=== PATIENT | female | born 1935 | race Caucasian/White ===

== ENCOUNTER 2024-01-04 10:37 | Inpatient (IN) | payer MEDICARE, SELFPAY ==
[2024-01-04] VITALS (11 sets, daily range): BP systolic 106–122; BP diastolic 59–85; PULSE 70–97; RESP 18–24; TEMP 35.9–37.1; O2SAT 93–100; BMI 23.8
--- NOTE | 2024-01-04 10:52 | RAD_ITS ---
HISTORY: Cough, shortness of breath. TECHNIQUE: XR Chest 1 View. COMPARISON: 12/19/2023. FINDINGS: CARDIOMEDIASTINAL BORDERS: Right chest wall port with catheter tip at the level the proximal superior vena cava. Mediastinal contour unchanged with calcification of the aorta. Cardiomegaly again noted. LUNGS: Mild linear opacities in the lung bases. PLEURA: Mild left pleural effusion. OSSEOUS STRUCTURES: Unremarkable. RAD/Chest 1 View (Portable) IMPRESSION: Cardiomegaly. Mild left pleural effusion. Mild bibasilar atelectasis or inflammation. Electronically Signed: Gabi Lorenzo MD at 12:01 EDT ,
--- NOTE | 2024-01-04 10:52 | EKG12_ITS ---
Test Reason : Blood Pressure : / mmHG Vent. Rate : 084 BPM Atrial Rate : 000 BPM P-R Int : 000 ms QRS Dur : 102 ms QT Int : 414 ms P-R-T Axes : 000 004 135 degrees QTc Int : 489 ms Atrial fibrillation Nonspecific T wave abnormality Abnormal ECG Confirmed by JULIAN VILLANUEVA, CHEMA ([id number]), online editor CLARA HALL ([id number]) on 01/06/2024 9:50:02 AM Referred By: Confirmed By:MAY JORDAN MD
--- NOTE | 2024-01-04 10:53 | EX.ED.DYSGE1 ---
HPI History of Present Illness Chief Complaint: Weakness Narrative Narrative: 88-year-old female presents with her daughter because of increasing shortness of breath and generalized weakness that she has had chronically. She has past medical history of myeloproliferative neoplasm and anemia. She has had multiple blood transfusions in the past. At the end of November, last month, her hemoglobin was 6.8. She had a Mediport inserted, and her labs were rechecked it is only gone up to above 7. Over the last few days, she has had increasing dyspnea on exertion, generalized weakness, generalized shortness of breath, and a cough. No fevers or chills. She was supposed to see her fabric worker leader/oncologist Dr. Brooks on Saturday for possible blood transfusion, but her daughter states that she contacted him because of the increasing shortness of breath and anemia. There is concern that she may have more of cardiac etiology for her increasing shortness of breath and weakness. However, she denies any chest pain, or other symptoms except for continued cough. [facility] Medical History Wears hearing aid Wears glasses History of Clostridium difficile infection Ambulates with cane Easy bruising Back pain History of diverticulitis Non-smoker Shortness of breath on exertion Chronic cough Leg cramps History of edema PONV (postoperative nausea and vomiting) History of echocardiogram Cardiology follow-up encounter History of irregular heartbeat Chest pain Diverticulosis History of stress test Dilation of esophagus Bladder prolapse History of vaginal delivery Anemia of chronic renal failure, stage 3a Chronic renal failure (CRF), stage 3a Thrombocytosis Anemia Myeloproliferative neoplasm Arthritis Gout Hypertension GERD (gastroesophageal reflux disease) Coronary artery disease Chronic kidney disease Wide-complex tachycardia (02/01/19) Nonischemic cardiomyopathy Essential (primary) hypertension Atherosclerosis of coronary artery of [place] heart without angina pectoris Hypothyroidism Vertigo Home Medications ?Medication ?Instructions ?Recorded ?Last Taken ?Type allopurinol 300 mg tablet 300 mg PO DAILY gout 02/01/19 01/04/24 History turmeric root extract 500 mg 500 mg PO DAILY thinks it is good 02/01/19 01/04/24 History capsule for her aspirin 81 mg chewable tablet 81 mg PO DAILY@0800 02/03/19 01/04/24 Rx levothyroxine 50 mcg capsule 50 mcg PO DAILY 02/20/19 01/04/24 History losartan 25 mg tablet (Cozaar) 25 mg PO DAILY #90 tabs 04/14/19 01/04/24 Rx carvedilol 6.25 mg tablet 6.25 mg PO BID #180 tabs 02/22/21 01/04/24 Rx cholecalciferol (vitamin D3) 50 50 mcg PO DAILY 12/12/22 01/04/24 History mcg (2,000 unit) capsule folic acid 1 mg tablet 1 mg PO DAILY 12/12/22 01/04/24 History cyanocobalamin (vitamin B-12) 5,000 mcg sublingual DAILY 12/14/23 01/04/24 History 5,000 mcg/mL sublingual drops Disability Placard #1 ea 12/31/23 Unknown Rx ascorbic acid (vitamin C) 500 mg 500 mg PO TID 01/04/24 01/04/24 History tablet coenzyme Q10 50 mg capsule 50 mg PO TID 01/04/24 Unknown History Allergy/AdvReac Type Severity Reaction Status Date / Time atorvastatin Allergy NEEDS Verified 12/19/23 07:51 FOLLOW-UP latex Allergy Rash Verified 12/19/23 07:51 metronidazole (From Flagyl) Allergy Nausea Verified 12/19/23 07:51 metronidazole, micronized Allergy NEEDS Verified 12/19/23 07:51 FOLLOW-UP mold Allergy Shortness Verified 12/19/23 07:51 of breath nitrofurantoin (From Allergy PT UNSURE Verified 12/19/23 07:51 Macrobid) OF REACTION lisinopril AdvReac cough Verified 12/19/23 07:51 Family History Father Hypertension Diabetes Heart disease Mother Hypertension Dementia Rheumatic fever Brother Blood disorder hemochromatosis Unknown Leukemia grandson Surgical History History of cataract extraction History of cardiac catheterization History of cataract removal with insertion of prosthetic lens History of colonoscopy History of bladder surgery History of tonsillectomy and adenoidectomy History of hysterectomy Hx of cholecystectomy History of left heart catheterization (02/03/19) Social History Smoking Status: Never smoker alcohol intake: current alcohol intake frequency: holidays/special occasions only Alcohol type: wine substance use type: does not use diet: gluten free ROS ROS ED ROS Narrative Constitutional: No fever, no chills. HEENT: No sore throat. No neck pain. No loss of vision. No rhinorrhea. Cardiovascular: No chest pain. No palpitations. No pedal edema. Respiratory: Positive dry, nonproductive cough, increasing shortness of breath. Positive dyspnea on exertion. Abdominal: No abdominal pain. No nausea. No vomiting. Genitourinary: No dysuria. No hematuria. Musculoskeletal: No myalgias. No arthralgias. Neurologic: No headaches. No dizziness. No lightheadedness. Skin: No rash. No change in color. Psychiatric: No depression. No anxiety. EXAM Physical Exam Narrative Exam Narrative: Afebrile. Vital signs noted. HEENT: Normocephalic. Atraumatic. PERRL, EOMI. Neck soft and supple. No point tenderness or step off. Cardiovascular: Regular rate and rhythm. No murmurs, rubs, or gallops appreciated. Respiratory: Mild tachypnea. Lungs clear to auscultation bilaterally. Dry cough on examination. Gastrointestinal: Abdomen soft, nontender, with normoactive bowel sounds. No rebound or guarding. Neurological: Awake. Alert. Nonfocal, nonlateralizing. Skin: No rash. Normal color. Positive bilateral palmar pallor with subconjunctival pallor. No central cyanosis. Musculoskeletal: No pedal edema. Full range of motion extremities. Const Vital Signs: 01/04/24 10:38 01/04/24 11:30 Temperature 96.7 F L Temperature Source Temporal Pulse Rate 85 Respiratory Rate 22 H Respiratory Effort Normal Respiratory Pattern Normal Blood Pressure 111/62 Blood Pressure Mean 78 Pulse Ox 100 Oxygen Delivery Method Room Air MDM MDM MDM Narrative Medical decision making narrative: In the differential diagnosis is anemia requiring transfusions causing her shortness of breath versus pneumonia versus pneumothorax versus ACS. History and physical does not support pneumothorax as she has bilateral breath sounds as well and her pulse ox is 100% on room air. I have low suspicion for pneumonia as well as she does not have fever or productive cough. Comprehensive workup was pursued. She will be typed and screened for the potential for transfusion of blood. She may require 1 unit of transfusion for symptomatic treatment if her hemoglobin is above 7. EKG was obtained and interpreted by myself independently as normal sinus rhythm at [address] changes. Positive PACs, no STEMI. I reviewed her laboratory work and she has normal white count of 9.5 but hemoglobin critically low at 4.9. She was typed and crossmatched for 4 units and started on a 2 unit transfusion. Platelet count normal at 327. BMP remarkable for BUN of 31 and creatinine 0.83. High-sensitivity troponin is 15, so I doubt non-STEMI. However, her BNP is elevated above the thousand. She was administered Lasix 40 mg intravenously prior to any blood transfusion. Chest x-ray 1 view interpreted by myself independently shows no evidence of pneumothorax or consolidation. I reviewed the radiology report which confirms my independent interpretation, but does comment on pleural effusion on the left and mild atelectasis bibasilar versus inflammation. I had paged Dr. Brooks to inform him of the low hemoglobin.. I also discussed the patient with Dr. Anaya the hospitalist for admission to the PCU. Patient is in stable condition. History & Record Review Discussion w/independent historian: Patient and Family Lab Data Attestation: I reviewed the patient's lab results. Labs: Laboratory Results - last 24 hr 01/04/24 11:20 WBC 9.5 RBC 1.84 L Hgb 4.9 L* Hct 15.9 L MCV 86.4 MCH 26.6 L MCHC 30.8 L RDW Std Deviation 68.0 H RDW Coeff of Rossi 23.1 H Plt Count 327 MPV 10.8 Immature Gran % (Auto) 1.900 H Neut % (Auto) 75.8 H Lymph % (Auto) 11.0 L [place] % (Auto) 5.7 Eos % (Auto) 4.0 Baso % (Auto) 1.6 H Absolute Neuts (auto) 7.2 Absolute Lymphs (auto) 1.05 Nucleated RBC % 0.4 Differential Comment SCANNED Diff Path Review May foll Reactive Lymphocytes 1+ Polychromasia 1+ Hypochromasia 2+ Anisocytosis 3+ Microcytosis 2+ Macrocytosis 1+ Stomatocytes 1+ Schistocytes 1+ Sodium 141 Potassium 4.0 Chloride 111 H Carbon Dioxide 21.0 Anion Gap 9 BUN 31 H Creatinine 0.83 Est GFR (MDRD) Af Amer 83 Est GFR (MDRD) Non-Af 69 BUN/Creatinine Ratio 37.3 H Glucose 131 H Calcium 8.6 Troponin I High Sens 15 B-Natriuretic Peptide 1005.6 H Blood Type O POSITIVE Antibody Screen NEGATIVE Crossmatch See Detail Radiography Chest X-Ray - ED: 1 View, Read by ED Physician and Read by Radiologist Diagnostic Testing: Clinical Impression(s) from Imaging Studies Chest X-Ray 01/04/24 10:52 IMPRESSION: Cardiomegaly. Mild left pleural effusion. Mild bibasilar atelectasis or inflammation. Electronically Signed: Gabi Lorenzo MD at 12:01 EDT , Discharge Plan Dx/Rx/DC Orders Clinical Impression: Anemia requiring transfusions, Myeloproliferative neoplasm, SOB (shortness of breath) Disposition Disposition: Acute Care Hospital [facility] Discharge Date/Time: 01/04/24 12:55
[2024-01-04 11:25] LABS: Absolute Lymphocyte Count 1.05 X10^3/uL (0.83-4.51); Absolute Neutrophil Count 7.2 X10^3/uL (2.0-7.7); Basophil# 0.15 X10^3/uL; Basophil% 1.6 % (0-1); Eosinophil# 0.38 X10^3/uL; Hematocrit 15.9 % (37-47); Lymphocyte # 1.05 X10^3/ul (0.83-4.51); Mean Corp Hgb Conc 30.8 g/dL (32-36); Mean Corpuscular Hgb 26.6 pg (27.0-32.0); Mean Corpuscular Volume 86.4 fL (81-99); Mean Platelet Vol. 10.8 fl (6.2-12.0); Monocyte# 0.54 X10^3/uL; Monocyte% 5.7 % (0-10); NRBC Flagged by Analyzer 0.4 % (0-5); Neutrophil # 7.23 X10^3/uL (2.7-7.7); Neutrophil % 75.8 % (47-70); POSITIVE COUNT YES; POSITIVE MORPHOLOGY YES; Platelet Count 327 K/mm3 (150-450); RBC Distribution Width CV 23.1 % (11.6-14.6); Red Blood Count 1.84 M/mm3 (4.2-5.4); White Blood Count 9.5 K/mm3 (4.4-11.0)
[2024-01-04 11:33] LABS: Differential Indicated SCAN CRITERIA MET; Hemoglobin 4.9 g/dL (12.0-15.0)
[2024-01-04 11:41] LABS: Anion Gap 9 (5-15); BUN 31 mg/dL (7-18); BUN/Creat Ratio 37.3 RATIO (10-20); Calcium,Total 8.6 mg/dL (8.5-10.1); Chloride 111 mmol/L (98-107); Creatinine, Serum 0.83 mg/dL (0.55-1.02); EST Glomerular Filtration Rate 69 mL/min (>60); Est Glom Filt Rate - Afr Amer 83 mL/min (>60); Glucose 131 mg/dL (74-106); Sodium Level 141 mmol/L (136-145); Troponin-I HS 15 pg/mL (3.0-54.0)
--- NOTE | 2024-01-04 11:51 | HP.PCM.HOS_ITS ---
HPI - General General Date of Admission: 01/04/24 Date of Service: 01/04/24 Chief Complaint: weakness HPI Narrative CHRIS GRIMES, is a 88 F with a PMH as outlined who presents via the ED with a complaint of worsening weakness and lethargy as well as shortness of breath. She has a history of myeloproliferative disorder with recurrent acute on chronic anemia requiring blood transfusions in the past. She had a Mediport inserted a few weeks ago. She has been getting weaker and more short of breath. She denied any fever, chills, chest pain or any other symptoms. She was supposed to see her oncologist on Saturday for transfusion. However, her symptoms had worsened so she came into the ED as daughters were concerned about possible pneumonia. Vitals in the ED with blood pressure 111/62, pulse rate of 85, respiratory rate of 22 and temperature of 96.7 Fahrenheit. She was saturating at 100% on room air. CBC showed hemoglobin of 4.9 with WBC of 9.5 and platelets of 327. Chemistry is unremarkable. Chest x-ray showed no evidence of any acute cardiopulmonary pathology. She has been admitted to be managed for acute on chronic anemia due to myeloproliferative disorder. [facility] Medical History (Updated 01/04/24 @ 13:26 by Erna Douglass) PVD (peripheral vascular disease) Wears hearing aid Wears glasses History of Clostridium difficile infection Ambulates with cane Easy bruising Back pain History of diverticulitis Non-smoker Shortness of breath on exertion Chronic cough Leg cramps History of edema PONV (postoperative nausea and vomiting) History of echocardiogram Cardiology follow-up encounter History of irregular heartbeat Chest pain Diverticulosis History of stress test Dilation of esophagus Bladder prolapse History of vaginal delivery Anemia of chronic renal failure, stage 3a Chronic renal failure (CRF), stage 3a Thrombocytosis Anemia Myeloproliferative neoplasm Arthritis Gout Hypertension GERD (gastroesophageal reflux disease) Coronary artery disease Chronic kidney disease Wide-complex tachycardia (02/01/19) Nonischemic cardiomyopathy Essential (primary) hypertension Atherosclerosis of coronary artery of [place] heart without angina pectoris Hypothyroidism Vertigo Home Medications ?Medication ?Instructions ?Recorded ?Last Taken ?Type allopurinol 300 mg tablet 300 mg PO DAILY gout 02/01/19 01/04/24 History turmeric root extract 500 mg 500 mg PO DAILY thinks it is good 02/01/19 01/04/24 History capsule for her aspirin 81 mg chewable tablet 81 mg PO DAILY@0800 02/03/19 01/04/24 Rx levothyroxine 50 mcg capsule 50 mcg PO DAILY 02/20/19 01/04/24 History losartan 25 mg tablet (Cozaar) 25 mg PO DAILY #90 tabs 04/14/19 01/04/24 Rx carvedilol 6.25 mg tablet 6.25 mg PO BID #180 tabs 02/22/21 01/04/24 Rx cholecalciferol (vitamin D3) 50 50 mcg PO DAILY 12/12/22 01/04/24 History mcg (2,000 unit) capsule folic acid 1 mg tablet 1 mg PO DAILY 12/12/22 01/04/24 History cyanocobalamin (vitamin B-12) 5,000 mcg sublingual DAILY 12/14/23 01/04/24 History 5,000 mcg/mL sublingual drops Disability Placard #1 ea 12/31/23 Unknown Rx ascorbic acid (vitamin C) 500 mg 500 mg PO TID 01/04/24 01/04/24 History tablet coenzyme Q10 50 mg capsule 50 mg PO TID 01/04/24 Unknown History Allergy/AdvReac Type Severity Reaction Status Date / Time atorvastatin Allergy NEEDS Verified 12/19/23 07:51 FOLLOW-UP latex Allergy Rash Verified 12/19/23 07:51 metronidazole (From Flagyl) Allergy Nausea Verified 12/19/23 07:51 metronidazole, micronized Allergy NEEDS Verified 12/19/23 07:51 FOLLOW-UP mold Allergy Shortness Verified 12/19/23 07:51 of breath nitrofurantoin (From Allergy PT UNSURE Verified 12/19/23 07:51 Macrobid) OF REACTION lisinopril AdvReac cough Verified 12/19/23 07:51 Family History Father Hypertension Diabetes Heart disease Mother Hypertension Dementia Rheumatic fever Brother Blood disorder hemochromatosis Unknown Leukemia grandson Surgical History History of cataract extraction History of cardiac catheterization History of cataract removal with insertion of prosthetic lens History of colonoscopy History of bladder surgery History of tonsillectomy and adenoidectomy History of hysterectomy Hx of cholecystectomy History of left heart catheterization (02/03/19) Social History Smoking Status: Never smoker alcohol intake: current alcohol intake frequency: holidays/special occasions only Alcohol type: wine substance use type: does not use diet: gluten free ROS Review of Systems ROS Unobtainable: Denies due to encephalopathy Constitutional Constitutional: Reports fatigue, malaise and weakness; Denies anorexia, chills or fever(s) Eyes Eyes: Denies change in vision ENT HEENT: Denies dysphagia, headache(s) or hearing loss Cardiovascular Cardiovascular: Reports dyspnea on exertion and lightheadedness; Denies edema, orthopnea, palpitations, paroxysmal nocturnal dyspnea, rapid heart rate or syncope Respiratory/Chest Respiratory/Chest: Denies cough or dyspnea Genitourinary Genitourinary: Denies dysuria or hematuria Musculoskeletal Musculoskeletal: Denies back pain Neurologic Neurologic: Denies confusion, dizziness, focal weakness or headache(s) Hematologic/Lymphatic Hematologic/Lymphatic: Reports anemia Vital Signs Vital Signs Vital Signs: 01/04/24 10:38 01/04/24 11:30 Temperature 96.7 F L Temperature Source Temporal Pulse Rate 85 Respiratory Rate 22 H Respiratory Effort Normal Respiratory Pattern Normal Blood Pressure 111/62 Blood Pressure Mean 78 Pulse Ox 100 Oxygen Delivery Method Room Air Physical Exam Const alert, oriented x3 and no apparent distress Constitutional Narrative: frail General Appearance: cooperative HEENT normocephalic, head/scalp atraumatic, hearing grossly normal bilaterally and moist oral mucous membranes Mouth: oral and palatal mucosa normal Eyes PERRL, EOMs intact bilaterally and conjunctivae normal Neck no lymphadenopathy and supple Resp normal respiratory effort, no retractions, no use of accessory muscles and clear to auscultation bilaterally Cardio regular rate, regular rhythm, S1 normal heart sound, S2 normal heart sound and no murmurs GI normal to inspection, nondistended, normoactive bowel sounds, soft to palpation and non-tender Extremity normal to inspection, full ROM and no clubbing, cyanosis or edema Neuro oriented x3, CN's II-XII intact bilaterally, moves all extremities and no focal motor deficits Motor Exam: strength 5/5 throughout Psych affect normal Results Lab / Micro Data 01/04/24 11:20 01/04/24 11:20 Labs: Laboratory Results - last 24 hr 01/04/24 11:20: WBC 9.5, RBC 1.84 L, Hgb 4.9 L*, Hct 15.9 L, MCV 86.4, MCH 26.6 L, MCHC 30.8 L, RDW Std Deviation 68.0 H, RDW Coeff of Rossi 23.1 H, Plt Count 327, MPV 10.8, Immature Gran % (Auto) 1.900 H, Neut % (Auto) 75.8 H, Lymph % (Auto) 11.0 L, [place] % (Auto) 5.7, Eos % (Auto) 4.0, Baso % (Auto) 1.6 H, Absolute Neuts (auto) 7.2, Absolute Lymphs (auto) 1.05, Nucleated RBC % 0.4, Sodium 141, Potassium 4.0, Chloride 111 H, Carbon Dioxide 21.0, Anion Gap 9, BUN 31 H, Creatinine 0.83, Est GFR (MDRD) Af Amer 83, Est GFR (MDRD) Non-Af 69, B UN/Creatinine Ratio 37.3 H, Glucose 131 H, Calcium 8.6, Troponin I High Sens 15 Assessment & Plan Assessment/Plan (1) SOB (shortness of breath): (2) Anemia requiring transfusions: PLAN: Plan #Acute on chronic anemia due to myeloproliferative disorder'= * Admit to PCU. * Her hemoglobin is 4.9. She does have chronic anemia requiring recurrent transfusions due to the myeloproliferative disorder. * Transfused with 2 units of packed red blood cells. * Admitted for hemoglobin more than 7. * His oncologist informed by ED. However I do not think there is any need to emergently involve hematology now. * #Acute on chronic HFpEF * BNP is 1005.6. * Daughter showed me echo from [place] done in August 2023 which showed that patient had EF of 35 to 40% and some left global hypokinesis. * Daughter says patient was on HCTZ, but this was discontinued due to her impaired kidney function. * she has never been on lasix * 2D echo ordered * IV lasix 40mg bid. * Her severe anemia may likely contributing to her herat failure * breathing treatment with bronchodilators. * Titrate oxygen to maintain sats >90% * #Hypertension: On carvedilol. Also on losartan. IV hydralazine as needed #Hypothyroidism: Synthroid #Nonischemic cardiomyopathy: Not on aspirin on account of recurrent anemia. Due to prophylaxis: SCDs. CODE STATUS:full code. * Patient and daughter counseled extensively about different types of CODE STATUS including full code, DNR CCA and DNR CCA. Patient elects to be full code. * Total [id number] time 17 minutes. Charges/Coding Visit Charges Inpatient E&M: 12142 Init Hosp L3 Procedures Hospitalists Procedures: 11321 Advncd Care Plan 30 Min
[2024-01-04 11:54] LABS: BNP,B-Type NATRIURETIC PEPTIDE 1005.6 pg/mL (0-100)
[2024-01-04 12:10] LABS: Differential Comment SCANNED
[2024-01-04 12:11] LABS: Anisocytosis 3+; Hypochromasia 2+; Macrocytosis 1+; Microcytosis 2+; Polychromasia 1+; Reactive Lymphocyte 1+; Schistocytes 1+; Stomatocyte 1+
[2024-01-04] MEDS: Furosemide 40 MG/4 ML Vial IV ×2 (12:11→17:53)
--- NOTE | 2024-01-04 13:01 | ECHOD_ITS ---
Reason For Study: CONGESTIVE HEART FAILURE Procedure This was a 2D Doppler, Color Flow transthoracic echocardiogram. Exam performed portable in patient room. Left Ventricle Mildly dilated left ventricle. The left ventricular ejection fraction is 35 %. There is moderate to severe global hypokinesis of the left ventricle. Right Ventricle Normal RV size. Normal systolic function. Atria Normal left atrium. Normal right atrium. Mitral Valve Normal mitral valve. Tricuspid Valve Normal tricuspid valve. Mild (1+) tricuspid valve insufficiency. Pulmonary artery systolic pressure is 28 mmHg. Aortic Valve Trisinus/trileaflet aortic valve. Mild (1+) aortic valve insufficiency. Pulmonic Valve Normal pulmonic valve. Great Vessels Normal aortic root. The pulmonary artery is normal size. Inferior vena cava collapse with respiration. Pericardium/Pleural Small pericardial effusion. There are no echocardiographic indications of cardiac tamponade. MMode/2D Measurements & Calculations LVIDd: 5.9 cm IVSd: 1.1 cm LVOT diam: 1.9 cm LVIDs: 4.4 cm LVPWd: 0.99 cm LVOT area: 2.8 cm2 RVDd: 4.2 cm FS: 25.6 % Ao root diam: 3.2 cm LAV(MOD-bp): 63.9 ml LVAd ap4: 28.2 cm2 LAV(MOD-bp) Indexed: 39.7 ml/m2 LVLd ap4: 7.0 cm LAV(MOD-sp2): 77.0 ml EDV(MOD-sp4): 95.7 ml LAV(MOD-sp4): 52.2 ml EDV(sp4-el): 96.8 ml LVAs ap4: 22.3 cm2 LVLs ap4: 6.3 cm ESV(MOD-sp4): 67.4 ml ESV(sp4-el): 66.8 ml EF(MOD-sp4): 29.6 % EF(sp4-el): 31.0 % LVAd ap2: 29.3 cm2 SV(MOD-sp4): 28.3 ml SV(MOD-sp2): 38.1 ml LVLd ap2: 7.2 cm EDV(MOD-sp2): 102.0 ml EDV(sp2-el): 100.9 ml LVAs ap2: 21.9 cm2 LVLs ap2: 6.2 cm ESV(MOD-sp2): 64.0 ml ESV(sp2-el): 66.3 ml EF(MOD-sp2): 37.3 % SV(sp4-el): 30.0 ml LA dimension(2D): 3.8 cm LA A4 area: 19.8 cm2 RA A4 area: 16.6 cm2 TAPSE: 2.4 cm Time Measurements MV dec time: 0.24 sec Doppler Measurements & Calculations MV E max brad: 60.8 cm/sec Lat Peak E' Brad: 6.7 cm/sec Med Peak E' Brad: 6.0 cm/sec E/E' lat: 9.1 E/E' med: 10.1 Ao V2 max: 168.2 cm/sec LV V1 max: 103.8 cm/sec SV(LVOT): 55.0 ml Ao max P.4 mmHg LV V1 max P.4 mmHg Ao V2 mean: 122.7 cm/sec LV V1 mean P.2 mmHg Ao mean P.6 mmHg LV V1 mean: 67.0 cm/sec Ao V2 VTI: 28.9 cm LV V1 VTI: 19.3 cm AV (velocity ratio): 0.67 JOSE ENRIQUE(I,D): 1.9 cm2 JOSE ENRIQUE(V,D): 1.8 cm2 TV V2 max: 247.9 cm/sec PA V2 max: 98.6 cm/sec TV max P.6 mmHg PA max PG (full): 2.1 mmHg ECHO/Echo Complete Interpretation Summary The left ventricular ejection fraction is 35 %. Mildly dilated left ventricle. There is moderate to severe global hypokinesis of the left ventricle. Pulmonary artery systolic pressure is 28 mmHg. Small pericardial effusion. Ordering Physician: Radha Anaya Referring Physician: Austin Martínez MD Performed By: Elodia Jackson RDCS
[2024-01-04] MEDS: Ensure Plus High Protein 120 ML LIQUID PO ×2 (14:17→16:46)
[2024-01-04] MEDS: 0.9% Saline Lock 10 ML Syringe IV ×2 (16:46→17:54)
[2024-01-04] MEDS: Ascorbic Acid 500 MG Tablet PO (16:52)
--- NOTE | 2024-01-04 16:53 | EKG12_ITS ---
Test Reason : Blood Pressure : / mmHG Vent. Rate : 087 BPM Atrial Rate : 087 BPM P-R Int : 160 ms QRS Dur : 104 ms QT Int : 362 ms P-R-T Axes : 075 002 140 degrees QTc Int : 435 ms Sinus rhythm with occasional Premature ventricular complexes and Premature atrial complexes Nonspecific T wave abnormality Abnormal ECG When compared with ECG of 04-JAN-2024 10:58, MANUAL COMPARISON REQUIRED, DATA IS UNCONFIRMED Confirmed by JOHAN VILLANUEVA, LUCI ([id number]), news assignment editor CLARA HALL ([id number]) on 01/07/2024 9:27:16 AM Referred By: RICO Confirmed By:LUCI PRADO MD
[2024-01-04 18:46] LABS: Troponin-I HS 17 pg/mL (3.0-54.0)
[2024-01-04] MEDS: Carvedilol 6.25 MG Tablet PO (20:10)
[2024-01-04 20:40] LABS: Hematocrit 20.9 % (37-47); Hemoglobin 6.7 g/dL (12.0-15.0); POSITIVE MORPHOLOGY YES
[2024-01-04 20:54] LABS: Troponin-I HS 15 pg/mL (3.0-54.0)
[2024-01-05] VITALS (10 sets, daily range): BP systolic 105–126; BP diastolic 66–87; PULSE 64–94; RESP 17–18; TEMP 36.4–36.8; O2SAT 95–99
[2024-01-05 00:43] LABS: Troponin-I HS 18 pg/mL (3.0-54.0)
[2024-01-05] MEDS: Levothyroxine 50 MCG Tablet PO (03:04)
[2024-01-05] MEDS: Acetaminophen 325 MG Tablet 650 MG PO ×3 (04:35→23:31)
[2024-01-05 06:25] LABS: Absolute Lymphocyte Count 1.25 X10^3/uL (0.83-4.51); Absolute Neutrophil Count 6.9 X10^3/uL (2.0-7.7); Basophil# 0.31 X10^3/uL; Basophil% 3.3 % (0-1); Eosinophil# 0.33 X10^3/uL; Eosinophils% 3.5 % (0-5); Hematocrit 19.8 % (37-47); Hemoglobin 6.4 g/dL (12.0-15.0); Lymphocyte # 1.25 X10^3/ul (0.83-4.51); Lymphocyte % 13.2 % (19-41); Mean Corp Hgb Conc 32.3 g/dL (32-36); Mean Corpuscular Hgb 27.8 pg (27.0-32.0); Mean Corpuscular Volume 86.1 fL (81-99); Mean Platelet Vol. 11.6 fl (6.2-12.0); Monocyte# 0.53 X10^3/uL; Monocyte% 5.6 % (0-10); NRBC Flagged by Analyzer 0.2 % (0-5); Neutrophil # 6.85 X10^3/uL (2.7-7.7); POSITIVE MORPHOLOGY YES; Platelet Count 370 K/mm3 (150-450); RBC Distribution Width CV 20.1 % (11.6-14.6); RBC Distribution Width SD 58.8 fl (35.1-43.9); White Blood Count 9.5 K/mm3 (4.4-11.0)
[2024-01-05 06:36] LABS: Differential Indicated SCAN CRITERIA MET
[2024-01-05 06:37] LABS: Anion Gap 8 (5-15); BUN 35 mg/dL (7-18); BUN/Creat Ratio 33.3 RATIO (10-20); Calcium,Total 8.5 mg/dL (8.5-10.1); Chloride 105 mmol/L (98-107); Creatinine, Serum 1.05 mg/dL (0.55-1.02); EST Glomerular Filtration Rate 52 mL/min (>60); Est Glom Filt Rate - Afr Amer 63 mL/min (>60); Estimated Creatinine Clearance 28.73 ml/min; Glucose 184 mg/dL (74-106); Potassium 3.3 mmol/L (3.5-5.1); Sodium Level 139 mmol/L (136-145)
[2024-01-05] MEDS: Furosemide 40 MG/4 ML Vial IV ×2 (09:26→17:51)
[2024-01-05 09:27] LABS: Acanthocytes 1+; Anisocytosis 2+; Differential Comment SCANNED; Hypochromasia 1+; Macrocytosis 1+; Microcytosis 1+
[2024-01-05] MEDS: Losartan Potassium 25 MG Tablet PO (09:27)
[2024-01-05] MEDS: Folic Acid 1 MG Tablet PO (09:27)
[2024-01-05] MEDS: Carvedilol 6.25 MG Tablet PO ×2 (09:27→20:50)
[2024-01-05] MEDS: Cholecalciferol (VIT D3) 25 MCG TABLET (1,000 UNITS) 50 MCG PO (09:27)
[2024-01-05] MEDS: 0.9% Saline Lock 10 ML Syringe IV ×3 (09:28→17:51)
[2024-01-05] MEDS: Ensure Plus High Protein 120 ML LIQUID PO (09:28)
[2024-01-05] MEDS: Ascorbic Acid 500 MG Tablet PO ×3 (09:28→17:50)
[2024-01-05] MEDS: Potassium Chloride Oral Tablet 20 MEQ 40 MEQ PO (09:28)
[2024-01-05] MEDS: Allopurinol 300 MG Tablet PO (09:28)
--- NOTE | 2024-01-05 09:35 | PCM.PROGNOTE ---
Subjective Subjective Patient seen and examined. Her daughter was by her bedside. She says she felt much better today. She had no other complaints and review of systems otherwise negative. Of note she did complain of some chest pain overnight but that has resolved. Objective Data Objective Data Vital Signs: Vital Signs Temp Pulse Resp BP Pulse Ox O2 Del Method 98.2 F 66 18 113/67 95 Room Air 01/05/24 09:25 01/05/24 09:25 01/05/24 09:25 01/05/24 09:25 01/05/24 09:25 01/05/24 09:25 Oxygen Delivery Method Room Air Weight: 130 lb 1.6 oz Body Mass Index (BMI) 23.8 Intake & Output: Intake and Output for Last 24 Hours 01/03/24 01/04/24 01/05/24 23:59 23:59 23:59 Intake Total 242 / 242 0 / 0 Output Total 625 / 1625 1550 / 1550 Balance -383 / -1383 -1550 / -1550 Lab / Micro Data 01/05/24 06:00 01/05/24 06:00 Labs: Laboratory Results - last 24 hr 01/04/24 11:20: WBC 9.5, RBC 1.84 L, Hgb 4.9 L*, Hct 15.9 L, MCV 86.4, MCH 26.6 L, MCHC 30.8 L, RDW Std Deviation 68.0 H, RDW Coeff of Rossi 23.1 H, Plt Count 327, MPV 10.8, Immature Gran % (Auto) 1.900 H, Neut % (Auto) 75.8 H, Lymph % (Auto) 11.0 L, Mitchell % (Auto) 5.7, Eos % (Auto) 4.0, Baso % (Auto) 1.6 H, Absolute Neuts (auto) 7.2, Absolute Lymphs (auto) 1.05, Nucleated RBC % 0.4, Differential Comment SCANNED, Diff Path Review May foll, Reactive Lymphocytes 1+, Polychromasia 1+, Hypochromasia 2+, Anisocytosis 3+, Microcytosis 2+, Macrocytosis 1+, Stomatocytes 1+, Schistocytes 1+, Sodium 141, Potassium 4.0, Chloride 111 H, Carbon Dioxide 21.0, Anion Gap 9, BUN 31 H, Creatinine 0.83, Est GFR (MDRD) Af Amer 83, Est GFR (MDRD) Non-Af 69, BUN/Creatinine Ratio 37.3 H, Glucose 131 H, Calcium 8.6, Troponin I High Sens 15, B-Natriuretic Peptide 1005.6 H, Blood Type O POSITIVE, Antibody Screen NEGATIVE, Crossmatch See Detail 01/04/24 18:17: Troponin I High Sens 17 01/04/24 20:28: Hgb 6.7 L, Hct 20.9 L, Troponin I High Sens 15 01/05/24 00:11: Troponin I High Sens 18 01/05/24 06:00: WBC 9.5, RBC 2.30 L, Hgb 6.4 L, Hct 19.8 L, MCV 86.1, MCH 27.8, MCHC 32.3, RDW Std Deviation 58.8 H, RDW Coeff of Rossi 20.1 H, Plt Count 370, MPV 11.6, Immature Gran % (Auto) 2.400 H, Neut % (Auto) 72.0 H, Lymph % (Auto) 13.2 L, Mitchell % (Auto) 5.6, Eos % (Auto) 3.5, Baso % (Auto) 3.3 H, Absolute Neuts (auto) 6.9, Absolute Lymphs (auto) 1.25, Nucleated RBC % 0.2, Differential Comment SCANNED, Hypochromasia 1+, Anisocytosis 2+, Microcytosis 1+, Macrocytosis 1+, Acanthocytes (Spur) 1+, Sodium 139, Potassium 3.3 L, Chloride 105, Carbon Dioxide 26.0, Anion Gap 8, BUN 35 H, Creatinine 1.05 H, Estim Creat Clear Calc 28.73, Est GFR (MDRD) Af Amer 63, Est GFR (MDRD) Non-Af 52 L, BUN/Creatinine Ratio 33.3 H, Glucose 184 H, Calcium 8.5 Radiography Diagnostic Testing: Radiology Impression Chest X-Ray 01/04/24 10:52 IMPRESSION: Cardiomegaly. Mild left pleural effusion. Mild bibasilar atelectasis or inflammation. Electronically Signed: Gabi Lorenzo MD at 12:01 EDT Reading Location ID and State: [facility] / [place] Tel , Service support , Physical Exam Const alert, oriented x3 and no apparent distress Constitutional Narrative: frail General Appearance: cooperative HEENT normocephalic, head/scalp atraumatic, hearing grossly normal bilaterally and moist oral mucous membranes Eyes PERRL, EOMs intact bilaterally and conjunctivae normal Neck no lymphadenopathy and supple Resp normal respiratory effort, normal air movement, no retractions, no use of accessory muscles and clear to auscultation bilaterally Cardio regular rate, regular rhythm, S1 normal heart sound, S2 normal heart sound and no murmurs GI normal to inspection, nondistended, normoactive bowel sounds, soft to palpation and non-tender Extremity normal to inspection, full ROM, normal capillary refill and no clubbing, cyanosis or edema Neuro oriented x3, CN's II-XII intact bilaterally, moves all extremities and no focal motor deficits Motor Exam: strength 5/5 throughout Psych thought process normal, cooperative and affect normal Appearance: appropriate Assessment & Plan Assessment/Plan (1) SOB (shortness of breath): (2) Anemia requiring transfusions: PLAN: Plan #Acute on chronic anemia due to myeloproliferative disorder'= s/p transfusion of 2 units of PRBCs. Hb was 6.4 on admission, and is now 6.7 today will transfuse 2 more units of PRBCs. Transfused with 2 units of packed red blood cells. #Acute on chronic HFpEF BNP is 1005.6. Daughter showed me echo from [place] done in August 2023 which showed that patient had EF of 35 to 40% and some left global hypokinesis. Daughter says patient was on HCTZ, but this was discontinued due to her impaired kidney function. Kidney function is normal now she has never been on lasix 2D echo ordered IV lasix 40mg bid. Her severe anemia may likely contributing to her heart failure breathing treatment with bronchodilators. Titrate oxygen to maintain sats >90% #Hypertension: On carvedilol. Also on losartan. IV hydralazine as needed #Hypokalemia: Potassium is 3.3 today. Replace and trend. #Hypothyroidism: Synthroid #Nonischemic cardiomyopathy: Not on aspirin on account of recurrent anemia. Due to prophylaxis: SCDs. CODE STATUS:full code. Charges/Coding Visit Charges Inpatient E&M: 01966 Subs Hosp L2
[2024-01-05 15:00] LABS: Hematocrit 29.3 % (37-47); Hemoglobin 9.8 g/dL (12.0-15.0)
[2024-01-05] MEDS: guaiFENesin 10 ML UDC (200MG/10ML) PO (21:17)
[2024-01-06 03:50] VITALS: BP 124/75; PULSE 62; RESP 14; TEMP 36.6; O2SAT 98
[2024-01-06] MEDS: Levothyroxine 50 MCG Tablet PO (05:18)
[2024-01-06 06:23] LABS: Absolute Neutrophil Count 8.8 X10^3/uL (2.0-7.7); Basophil# 0.47 X10^3/uL; Basophil% 3.8 % (0-1); Eosinophil# 0.39 X10^3/uL; Eosinophils% 3.1 % (0-5); Hematocrit 28.6 % (37-47); Hemoglobin 9.3 g/dL (12.0-15.0); Lymphocyte % 14.4 % (19-41); Mean Corp Hgb Conc 32.5 g/dL (32-36); Mean Corpuscular Hgb 27.9 pg (27.0-32.0); Mean Corpuscular Volume 85.9 fL (81-99); Mean Platelet Vol. 10.8 fl (6.2-12.0); Monocyte# 0.75 X10^3/uL; NRBC Flagged by Analyzer 0.2 % (0-5); Neutrophil # 8.83 X10^3/uL (2.7-7.7); Neutrophil % 70.5 % (47-70); Platelet Count 429 K/mm3 (150-450); RBC Distribution Width CV 19.4 % (11.6-14.6); RBC Distribution Width SD 56.6 fl (35.1-43.9); Red Blood Count 3.33 M/mm3 (4.2-5.4); White Blood Count 12.5 K/mm3 (4.4-11.0)
[2024-01-06 06:46] LABS: Anion Gap 10 (5-15); BUN 48 mg/dL (7-18); Chloride 103 mmol/L (98-107); Creatinine, Serum 1.09 mg/dL (0.55-1.02); EST Glomerular Filtration Rate 50 mL/min (>60); Est Glom Filt Rate - Afr Amer 61 mL/min (>60); Estimated Creatinine Clearance 27.67 ml/min; Glucose 142 mg/dL (74-106); Potassium 3.8 mmol/L (3.5-5.1); Sodium Level 138 mmol/L (136-145)
[2024-01-06 10:46] VITALS: BP 127/84; PULSE 88; RESP 16; TEMP 36.5; O2SAT 92
[2024-01-06] MEDS: Folic Acid 1 MG Tablet PO (10:49)
[2024-01-06] MEDS: Ascorbic Acid 500 MG Tablet PO ×2 (10:49→10:50)
[2024-01-06] MEDS: Carvedilol 6.25 MG Tablet PO (10:50)
[2024-01-06] MEDS: Losartan Potassium 25 MG Tablet PO (10:50)
[2024-01-06] MEDS: Allopurinol 300 MG Tablet PO (10:50)
[2024-01-06] MEDS: Cholecalciferol (VIT D3) 25 MCG TABLET (1,000 UNITS) 50 MCG PO (10:50)
[2024-01-06] MEDS: Furosemide 40 MG Tablet PO (10:51)
--- NOTE | 2024-01-06 11:00 | CASEMGMT ---
Addendum entered by Zeferino Becker 01/06/24 15:29: 1345: Pt being discharged. RN CM back to room. Dtr states they have decided not to have HHC set up at this time. They are aware, if once pt returns home, if they change their mind, to f/u with Dr Martínez, as HHC can be set up from his office. Pt and dtr are aware of [facility]'s home-bound criteria for HHC. Original Note: RN?CM?MILITARY TECHNOLOGY SPECIALIST?CM?to room to meet with patient for initial transition planning/care coordination?assessment.?RN?CM?introduced self and role at [facility].? Pt voices understanding and consents to?assessment?at this time.? Pt resting in bed in no distress at this time.? Alisha Salazar, @ bedside. Pt is A/O at this time and answers all questions appropriately.?? Care providers, pharmacy, and demographics verified/updated at this time. PCP: Dr Austin Martínez Specialists:Dr Brooks-oncology. Has upcoming appt w/[facility] in January to get established. Was seeing a signal technician when she lived in [place], but states has been cleared and no longer sees nephro Preferred Pharmacy: [facility] Retail Insurance: [employer] [facility] Prescription Benefit:?yes Living Will/HPOA:?Has both LW and HCPOA, who is her daughter, Alisha. LNOK: Dtr/HCPAlisha POWERS Living Arrangements: Lives w/dtr, Alisha, and son-in-law in one-story home w/3 steps to enter. Indep w/ADL's. Alisha assists her up/down steps d/t no railing on steps. Dtr also does home mgnt tasks: meals, cooking, cleaning. Transportation:?daughterAlisha DME: ?Has the following DME:?shower stool, comfort height commode, hand held shower, grab bars, cane, rollator, lift chair. Alisha just got a script for W/C from Dr Martínez and is working on getting this. Pt does not have a medical alert button and they are interested in info. Same provided at this time. Pt states no need for further DME at this time.? HHC/SNF: No hx of either. Discussed dc planning. Pt wishes to discharge home. Info provided and questions answered re: HHC. Pt and dtr wish to think about this. List of [facility] agencies that was prepared by rae Maciel funeral home assistant, provided to them. RN CM will f/u later today re: decision. Pt wishes to return home and states has no concerns with going home at time of discharge.??CM?to follow for any further discharge planning/needs.? Pt and dtr voice no further concerns/needs at this time.? Advised them to ask for?CM?if any further questions/concerns/needs arise.? They voice understanding. PLAN:??Home w/possibe HHC. Cristopher GEIGERN?RN?CM
[2024-01-06 11:03] VITALS: O2SAT 99
[2024-01-06 11:07] VITALS: O2SAT 99
--- NOTE | 2024-01-06 11:22 | CASEMGMT ---
Discharge Planning A list of HH providers including quality and resource use data and consistent with the patient's preferred geographic region, medical needs, and insurance network was created in [employer] Guide.? This list was provided to the Janell Swift Discharge Planning Asst.
[2024-01-06 11:24] VITALS: O2SAT 92; O2SAT 99
--- NOTE | 2024-01-06 11:31 | PCM.DC.SUM ---
Providers Date of Admission: 01/04/24 Date of Discharge: 01/06/24 Primary Care Physician: Dr. Austin Martínez MD Reason For Visit: ACUTE ON CHRONIC ANEMIA Diagnosis Discharge Diagnosis (1) SOB (shortness of breath): Status: Acute Code(s): R06.02 - Shortness of breath (2) Anemia requiring transfusions: Status: Acute Code(s): D64.9 - Anemia, unspecified Medications at Discharge Home Medications allopurinol 300 mg tablet 300 mg PO DAILY gout 02/01/19 turmeric root extract 500 mg capsule 500 mg PO DAILY thinks it is good for her 02/01/19 aspirin 81 mg chewable tablet 81 mg PO DAILY@0800 02/03/19 levothyroxine 50 mcg capsule 50 mcg PO DAILY 02/20/19 losartan 25 mg tablet (Cozaar) 25 mg PO DAILY #90 tabs 04/14/19 carvedilol 6.25 mg tablet 6.25 mg PO BID #180 tabs 02/22/21 cholecalciferol (vitamin D3) 50 mcg (2,000 unit) capsule 50 mcg PO DAILY 12/12/22 folic acid 1 mg tablet 1 mg PO DAILY 12/12/22 cyanocobalamin (vitamin B-12) 5,000 mcg/mL sublingual drops 5,000 mcg sublingual DAILY 12/14/23 Disability Placard #1 ea 12/31/23 ascorbic acid (vitamin C) 500 mg tablet 500 mg PO TID 01/04/24 coenzyme Q10 50 mg capsule 50 mg PO TID 01/04/24 benzonatate 100 mg capsule 100 mg PO BID PRN cough #14 caps 01/06/24 empagliflozin 10 mg tablet (Jardiance) 10 mg PO DAILY #30 tabs 01/06/24 furosemide 40 mg tablet 40 mg PO BIDLX #60 tabs 01/06/24 potassium chloride 20 mEq tablet,extended release 20 meq PO DAILY #30 tabs 01/06/24 Hospital Course Procedures 2-D Echocardiogram, Blood transfusion (4 units), EKG and - (Chest x-ray) Summary of Care Provided Minutes Spent on Discharge: 45 Hospital Course: Mrs. Mosquera is an 88-year-old white female who presented to the emergency department at [facility] on 01/04/2024 complaining of weakness and shortness of breath. She has a history of myeloproliferative disorder and has issues with chronic anemia requiring frequent blood transfusions previously. She follows with hematology/oncology and sees Dr. Salazar as an outpatient. She had a Mediport inserted a few weeks ago and complained on presentation that she had been getting progressively weaker and more short of breath. She was supposed to see her oncologist on Saturday for transfusion however her symptoms worsened to the point where she came to the emergency department as her daughters were concerned that she could possibly have pneumonia. She also had an associated cough which has been chronic over the past couple weeks as well. Cough is not productive of any sputum. She has no history of tobacco abuse. Upon presentation her temperature was 96.7, heart rate 85, respiratory 22, blood pressure was 111/62 and oxygen saturation was 100% on room air. Her CBC showed a normal white count but she had a significant anemia with a hemoglobin of 4.9 and required 4 units of packed red blood cells which improved her hemoglobin from 4.9-9.3 at the time of discharge. She denied any dark tarry stools or hematemesis at home. Platelet count was normal. Her chemistry panel was overtly unremarkable with normal electrolytes. Her BUN was 31 and her serum creatinine was 0.83. Blood glucose level was 131 and cardiac enzymes were cycled being 15, 17, 15, and 18 respectively. A BNP was obtained and found to be 1005.6. EKG at presentation showed normal sinus rhythm with a rate of [address]-T wave changes. She did have a few PACs. Chest x-ray showed cardiomegaly with possible mild left pleural effusion and mild bibasilar atelectasis. She was admitted to the telemetry floor and placed on IV Lasix 40 mg IV push twice daily and given 4 units of packed red blood cells. As noted above her hemoglobin improved from 4.9-9.3 at the time of discharge. She denied any signs consistent with GI bleeding. She evidently had been on hydrochlorothiazide previously which was discontinued by her gear generator set up operator in [place] due to worsening creatinine. We are unclear what her kidney function had been previously but she did indicate that she was diagnosed with stage III kidney disease. Upon presentation her GFR was in the 60-70 range. She diuresed well and was negligible of a total of 3.7 L at the time of discharge. She indicated her shortness of breath was much improved however she was still having some intermittent cough. We did question whether or not she could have an allergic component as it seems to be worse when she lies down and we were concerned that there is some postnasal drip. I asked her at discharge to start Flonase [id number] to see if she had improvement and we did prescribe some Tessalon Perles to help with the cough at home. She did indicate the cough is dry and nonproductive. A repeat echocardiogram was performed. She had 1 done recently in August 2023 in [place] at which time she was found to have an EF of 35 to 40%. This was consistent with a previous echocardiogram done here in 2019 at which time she had an EF of 40% and stage I diastolic dysfunction. Hypokinesis at that time was mild to moderate global in nature. Repeat echocardiogram here today showed an EF of 35% with moderate to severe global hypokinesis of the LV. She did have a cardiac catheterization done in 2019 which showed nonobstructive coronary disease. Her shortness of breath had improved significantly. We did an ambulatory pulse ox at which time she was 92% on room air at rest and 99 on room air with exertion and therefore did not require any supplemental oxygen. We did continue diuretics but transitioned from 40 IV twice daily to 40 p.o. twice daily and I have asked that she obtain a basic metabolic profile and a magnesium level to be done either on or Saturday at this week. I have asked her to call her primary care physician request this be ordered at that time. She will also be given 20 mill equivalents of potassium daily. Her Lasix dose may need to be adjusted some based on her serum creatinine but as per discussion with the family I think it is acceptable for creatinine to run between 1 and 1.2 as long as she is hemodynamically stable and not having any signs of hypotension or orthostasis. We also added Jardiance 10 mg a day to help with her heart failure and prescription for this was sent to her local pharmacy as well. She is to follow-up with cardiology on 01/21/2024 and with oncology as previously scheduled. We have asked her to watch her fluid intake and limit it to no more than 2 L daily and limit salt intake to 2 to 3 g daily. We also discussed weighing herself on a daily basis and taking an extra dose of Lasix if she gains more than 2 to 3 pounds in a 24-hour period. We also asked her to call her cardiology office if she gains excess weight during a short a period of time as well. Her daughter is at the bedside and discharge instructions were reviewed with her as well. Prescription for Lasix and potassium were sent to the local pharmacy. Discharge diagnoses: Acute on chronic heart failure with reduced ejection fraction-now compensated Hypokalemia-resolved Shortness of breath-improved Cough JAK2 positive BCR?ABL negative myeloproliferative neoplasm Acute on chronic anemia--> transfusion dependent Thrombocytosis Nonischemic cardiomyopathy History of wide-complex tachycardia CKD stage IIIa History of C. difficile infection Diverticulosis GERD History of gout Hypertension Nonobstructive CAD Hypothyroidism History of vertigo Physical Exam Const alert, oriented x3, no apparent distress, average body habitus, no limitations and well nourished Constitutional Narrative: Elderly, white female, sitting up in in a chair at the bedside crocheting, appears comfortable, nontoxic, daughter at bedside, appears younger than stated age on appearance General Appearance: cooperative, comfortable, well kempt and well developed Orientation / Consciousness: awake, oriented to person, oriented to place and oriented to time Exam Limitations: no limitations HEENT normocephalic, head/scalp atraumatic, hearing grossly normal bilaterally and moist oral mucous membranes HEENT Narrative: Mallampati 2, no thrush Eyes PERRL and EOMs intact bilaterally Eyes Narrative: No scleral icterus Neck no lymphadenopathy and supple Neck Narrative: Trachea midline, no thyroid enlargement Resp normal respiratory effort, no retractions, no use of accessory muscles and clear to auscultation bilaterally Auscultation: Negative for rales, rhonchi or wheezes Cardio regular rate, regular rhythm, S1 normal heart sound, S2 normal heart sound, no murmurs, no rub, no gallops and no clicks GI normal to inspection, nondistended, normoactive bowel sounds, soft to palpation and non-tender Extremity no clubbing, cyanosis or edema Extremity Narrative: Pedal pulses are 2+ Skin no rashes or lesions noted, no wounds, skin turgor normal and no jaundice Skin Narrative: Skin is slightly pale, med port right chest is clean dry and intact with current access and no signs of infection or tenderness Neuro oriented x3, moves all extremities and no focal motor deficits Speech: speech normal Psych affect normal Psych Narrative: Very pleasant, eye contact is good, patient interacts appropriately Weight / BMI Weight Weight: 59 kg Body Mass Index (BMI) 23.8 ABG / Lab / Microbiology Data 01/06/24 05:28 01/06/24 05:28 Laboratory: Laboratory Results - last 24 hr 01/04/24 11:20: Crossmatch See Detail 01/05/24 14:30: Hgb 9.8 L, Hct 29.3 L 01/06/24 05:28: WBC 12.5 H, RBC 3.33 L, Hgb 9.3 L, Hct 28.6 L, MCV 85.9, MCH 27.9, MCHC 32.5, RDW Std Deviation 56.6 H, RDW Coeff of Rossi 19.4 H, Plt Count 429, MPV 10.8, Immature Gran % (Auto) 2.200 H, Neut % (Auto) 70.5 H, Lymph % (Auto) 14.4 L, [place] % (Auto) 6.0, Eos % (Auto) 3.1, Baso % (Auto) 3.8 H, Absolute Neuts (auto) 8.8 H, Absolute Lymphs (auto) 1.80, Nucleated RBC % 0.2, Sodium 138, Potassium 3.8, Chloride 103, Carbon Dioxide 25.0, Anion Gap 10, BUN 48 H, Creatinine 1.09 H, Estim Creat Clear Calc 27.67, Est GFR (MDRD) Af Amer 61, Est GFR (MDRD) Non-Af 50 L, BUN/Creatinine Ratio 44.0 H, Glucose 142 H, Calcium 9.0 D/C Instructions Discharge Diet: Low fat / Low cholesterol (Limit fluid intake to 2 L or less daily, limit sodium intake to 2 to 3 g daily) Discharge Activity: Return to Normal Activity Meaningful Use Info Meaningful Use Meaningful Use Diagnoses (Choose all that apply): CHF CHF JARRETT/ARB ordered at discharge?: Yes Documented LVEF (%): 35 Ischemic Stroke Statin Dosing Therapy Reference: STATIN DOSE THERAPY REFERENCE: * Patients > 75 years receive moderate or high dose statin therapy. * Patients 75 years or YOUNGER should receive HIGH intensity statin dose unless contraindicated. You will be required to document reason for non-treatment if statin daily dose does not meet guidelines. HIGH DOSE STATIN THERAPY DAILY Atorvastatin > than or = to 40 mg Rosuvastatin > than or = to 20 mg Amlodipine + Atorvastatin > than or = to 2.5/40 mg Ezetimibe + Simvastatin 10/80 mg Simvastatin 80mg Discharge Plan Admission Admit Date/Time: 01/04/24 12:03 Primary Reason for Your Visit: Shortness of Breath Attending Provider: Jody Perrin Primary Care Provider: Austin Martínez Consulting Providers: Radha Anaya Instructions Additional Instructions / Restrictions: 1. Please limit your fluid intake to no more than 2 L daily 2. Please limit your sodium intake to no more than 2 to 3 g daily 3. Please weigh yourself when you get home on your scale tomorrow morning and keep track of your weight on a daily basis with no close on at roughly the same time each day. If you gain more than 2 to 3 pounds in a 24-hour period please take an extra dose of Lasix and call your loss prevention supervisor. 4. Please call your primary care doctor's office and asked that a basic metabolic profile and a magnesium level be ordered and done on 01/09/2024 or 01/10/2024 to recheck your kidney function and your electrolytes with the Lasix dosing. At discharge you will be taking 40 mg twice daily of the Lasix but this dose, as per our discussion, may need reduced depending on your kidney function. 5. Please follow-up with cardiology as noted below and oncology as previously instructed. Discharge Orders/Prescriptions Prescriptions: New furosemide 40 mg Tablet 40 mg PO BIDLX Qty: 60 0RF potassium chloride 20 mEq tablet extended release 20 meq PO DAILY Qty: 30 0RF Jardiance 10 mg tablet 10 mg PO DAILY Qty: 30 0RF benzonatate 100 mg capsule 100 mg PO BID PRN (Reason: cough) Qty: 14 0RF Continued levothyroxine 50 mcg capsule 50 mcg PO DAILY folic acid 1 mg tablet 1 mg PO DAILY cholecalciferol (vitamin D3) 50 mcg (2,000 unit) capsule 50 mcg PO DAILY allopurinol 300 MG tablet 300 mg PO DAILY turmeric root extract 500 MG capsule 500 mg PO DAILY aspirin 81 MG tablet,chewable 81 mg PO DAILY@0800 0RF cyanocobalamin (vitamin B-12) 5,000 mcg/mL drops 5,000 mcg sublingual DAILY ascorbic acid (vitamin C) 500 mg tablet 500 mg PO TID coenzyme Q10 50 mg capsule 50 mg PO TID Patient Comments: pt just picked up yesterday, hasnt started yet losartan [Cozaar] 25 mg tablet 25 mg PO DAILY Qty: 90 5RF carvedilol 6.25 mg tablet 6.25 mg PO BID Qty: 180 3RF (DME) Disability Placard See Rx Instructions .Route .MEDSUPPLY Qty: 1 0RF Rx Instructions: Lifetime; No expiration Referrals / Follow Up: Austin Martínez MD [Primary Care Provider] - Within 1 Week Gerber Brooks MD [Med Staff - Active Staff] - See Referral Note (As directed by office) Deanna Martinez PA [Med Staff - Adv Practice Prof] - 01/21/24 9:30 am Disposition Disposition (needs filled in before D/C Order can be placed): Home, Self Care Charges/Coding Visit Charges Inpatient E&M: 11566 Disch Hosp >30min
[2024-01-06] MEDS: 0.9% Saline Lock 10 ML Syringe IV (14:11)
--- NOTE | 2024-01-06 14:38 | PHA.DC.MC.R ---
Pharmacy [facility] Service has performed discharge medication reconciliation and counseling for this patient. 1. FUROSEMIDE 40MG PO BIDLX 2. POTASSIUM CHLORIDE 20MEQ PO DAILY 3. EMPAGLIFLOZIN 10MG PO DAILY 4. BENZONATATE 100MG PO BID PRN COUGH The patient's discharge medication list was reviewed for discrepancies and discrepancies were resolved. The patient was counseled on the following discharge medications and changes in medications for homegoing were reviewed. The Reason for Use, instructions for use, and potential side effects were reviewed for all new medications. The patient's questions regarding all of their medications were answered. The patient was able to verbally demonstrate an understanding of their discharge medications. Patient counseled by standards analyst, Radha. Medications at Discharge Home Medications allopurinol 300 mg tablet 300 mg PO DAILY gout 02/01/19 turmeric root extract 500 mg capsule 500 mg PO DAILY thinks it is good for her 02/01/19 aspirin 81 mg chewable tablet 81 mg PO DAILY@0800 02/03/19 levothyroxine 50 mcg capsule 50 mcg PO DAILY 02/20/19 losartan 25 mg tablet (Cozaar) 25 mg PO DAILY #90 tabs 04/14/19 carvedilol 6.25 mg tablet 6.25 mg PO BID #180 tabs 02/22/21 cholecalciferol (vitamin D3) 50 mcg (2,000 unit) capsule 50 mcg PO DAILY 12/12/22 folic acid 1 mg tablet 1 mg PO DAILY 12/12/22 cyanocobalamin (vitamin B-12) 5,000 mcg/mL sublingual drops 5,000 mcg sublingual DAILY 12/14/23 Disability Placard #1 ea 12/31/23 ascorbic acid (vitamin C) 500 mg tablet 500 mg PO TID 01/04/24 coenzyme Q10 50 mg capsule 50 mg PO TID 01/04/24 benzonatate 100 mg capsule 100 mg PO BID PRN cough #14 caps 01/06/24 empagliflozin 10 mg tablet (Jardiance) 10 mg PO DAILY #30 tabs 01/06/24 furosemide 40 mg tablet 40 mg PO BIDLX #60 tabs 01/06/24 potassium chloride 20 mEq tablet,extended release 20 meq PO DAILY #30 tabs 01/06/24
[2024-01-06 16:20] LABS: Pathologist Review Reviewed
== END 2024-01-06 14:47 | disposition home or self-care (01) | DRG 811 ==
LOC: ED 11:56 → PCU 12:03
PROVIDERS: Admitting Provider Student in an Organized Health Care Education/Training Program; Emergency Provider Emergency Medicine; PCP Family Medicine; Visit Provider Internal Medicine
DX: D64.9 Anemia, unspecified (principal); I50.33 Acute on chronic diastolic (congestive) heart failure; I42.8 Other cardiomyopathies; J90 Pleural effusion, not elsewhere classified; I13.0 Hypertensive heart and chronic kidney disease with heart failure and stage 1 through stage 4 chronic kidney disease, or unspecified chronic kidney disease; D47.Z9 Other specified neoplasms of uncertain behavior of lymphoid, hematopoietic and related tissue; D47.1 Chronic myeloproliferative disease; J98.11 Atelectasis; N18.31 Chronic kidney disease, stage 3a; E03.9 Hypothyroidism, unspecified; I25.10 Atherosclerotic heart disease of native coronary artery without angina pectoris; E87.6 Hypokalemia; Z79.82 Long term (current) use of aspirin; R05.9 Cough, unspecified
CPT/HCPCS: 36415; 71045; 80048; 83880; 84484; 85014; 85018; 85025; 86850; 86900; 86901; 86920; 93005; 93306; 97110; 97162; 97166; 97530; 97802; 99284; J7040; P9016; A4216; J1940

== ENCOUNTER 2024-01-10 09:00 | Outpatient (CLI) | payer MEDICARE, SELFPAY ==
[2024-01-10 09:42] LABS: Absolute Lymphocyte Count 1.78 X10^3/uL (0.83-4.51); Absolute Neutrophil Count 9.5 X10^3/uL (2.0-7.7); Basophil% 4.5 % (0-1); Eosinophil# 0.43 X10^3/uL; Eosinophils% 3.3 % (0-5); Hematocrit 27.6 % (37-47); Hemoglobin 8.8 g/dL (12.0-15.0); Lymphocyte # 1.78 X10^3/ul (0.83-4.51); Lymphocyte % 13.5 % (19-41); Mean Corp Hgb Conc 31.9 g/dL (32-36); Mean Corpuscular Hgb 27.8 pg (27.0-32.0); Mean Corpuscular Volume 87.1 fL (81-99); Mean Platelet Vol. 10.9 fl (6.2-12.0); Monocyte# 0.69 X10^3/uL; Monocyte% 5.2 % (0-10); NRBC Flagged by Analyzer 0 % (0-5); Neutrophil # 9.45 X10^3/uL (2.7-7.7); Neutrophil % 71.5 % (47-70); POSITIVE DIFFERENTIAL YES; POSITIVE MORPHOLOGY YES; Platelet Count 415 K/mm3 (150-450); RBC Distribution Width CV 19.9 % (11.6-14.6); RET-HE 30.6 pg (30-35); Red Blood Count 3.17 M/mm3 (4.2-5.4); Reticulocyte Count 1.57 % (0.5-1.5); White Blood Count 13.2 K/mm3 (4.4-11.0)
[2024-01-10 09:44] LABS: Differential Indicated SCAN CRITERIA MET
[2024-01-10 10:02] LABS: BNP,B-Type NATRIURETIC PEPTIDE 135.5 pg/mL (0-100)
[2024-01-10 10:05] LABS: Ferritin 1081 ng/mL (8-252); Iron 194 ug/dL (50-170); Magnesium 2.7 mg/dL (1.6-2.6)
[2024-01-10 10:22] LABS: Ovalocyte 1+; Tear Drop Cell 1+
[2024-01-10 10:24] LABS: Schistocytes 1+
[2024-01-10 10:25] LABS: Anisocytosis 2+
[2024-01-10 10:26] LABS: Neutrophil-Segmented 71.5 % (47-70)
[2024-01-13 10:39] LABS: ALB/GLOB Ratio 1.4 RATIO (0.9-2.4); AST(SGOT) 21 U/L (15-37); Alanine Aminotransfer ALT/SGPT 19 U/L (13-56); Albumin, Serum 4.2 g/dL (3.2-5.0); Alkaline Phosphatase 62 U/L (45-117); Anion Gap 9 (5-15); BUN 68 mg/dL (7-18); BUN/Creat Ratio 50.4 RATIO (10-20); Calcium,Total 9.3 mg/dL (8.5-10.1); Chloride 104 mmol/L (98-107); Creatinine, Serum 1.35 mg/dL (0.55-1.02); EST Glomerular Filtration Rate 39 mL/min (>60); Est Glom Filt Rate - Afr Amer 47 mL/min (>60); Globulin 3.1 g/dL (2.2-4.2); Glucose 118 mg/dL (74-106); Potassium 4.6 mmol/L (3.5-5.1); Protein, Total 7.3 g/dL (6.4-8.2); Sodium Level 136 mmol/L (136-145)
[2024-01-13 13:36] LABS: Pathologist Review Reviewed
== END 2024-01-10 23:59 | disposition home or self-care (01) ==
LOC: MEDOUTP 09:01
PROVIDERS: PCP Family Medicine; Referring Provider Family Medicine; Visit Provider Family Medicine
DX: I42.9 Cardiomyopathy, unspecified (principal); D64.9 Anemia, unspecified
CPT/HCPCS: 36591; 80053; 82728; 83540; 83735; 83880; 85025; 85045; A4216

== ENCOUNTER → 2024-01-13 | Outpatient (CLI) | payer MEDICARE, SELFPAY ==
[2024-01-20 04:06] LABS: Pancreatic Elastase, Fecal 393 (>200)
[2024-01-20 20:08] LABS: Fats, Neutral Normal (.); Fats, Total Normal (.)
== END | disposition home or self-care (01) ==
LOC: LABSPEC 08:11
PROVIDERS: PCP Family Medicine; Visit Provider Family Medicine
DX: R19.7 Diarrhea, unspecified (principal)
CPT/HCPCS: 82653; 82705